=== PATIENT | female | born 1945 | race American Indian/Alaskan Native ===

== ENCOUNTER 2020-12-23 11:19 | Emergency (ER) | payer MEDICARE ==
[2020-12-23 12:41] VITALS: BP 127/76
--- NOTE | 2020-12-23 14:18 | Event Note ---
ED Screening Note Date of service: 12/23/20 Time: 14:16 ED Screening Note: 75-year-old female patient with history of schizophrenia and recurrent urinary tract infections presents to the emergency department with her daughter with reported complaints of increased urinary frequency, wound to the buttocks, and generalized weakness. Daughter is concerned that patient may be dehydrated. States her current symptoms are reminiscent of prior UTIs. Patient is on medication for schizophrenia. She has not exhibited dangerous behavior towards other family members, however she has attempted to leave the house without the family's knowledge. A caregiver has recently begun helping watch patient at her house. No recent falls. Daughter has been attempting to arrange for outpatient psychiatric evaluation, but follow-up has been delayed. Tachycardic in triage. General: Awake, appropriately interactive, no acute distress. Neck: Supple. Full range of motion intact. Cardiovascular: Normal peripheral perfusion. Pulmonary: No respiratory distress. Patient is speaking normally without use of accessory muscles. Skin: No apparent rashes or lesions. Neurological: No facial asymmetry. Follows commands. Musculoskeletal: Moves all four extremities spontaneously with normal range of motion. Psych: Cooperative. Appropriate mood and affect. I have greeted and performed a focused rapid initial assessment of this patient. A comprehensive ED assessment and evaluation of the patient, analysis of all test results, and completion of the medical decision-making process will be conducted by additional ED providers. This initial assessment/diagnostic orders/clinical plan/treatment(s) is/are subject to change based on patients health status, clinical progression and re-assessment. Further treatment and workup at subsequent clinical provider's discretion. Patient/guardian urged not to elope from the ED as their condition may be serious if not clinically assessed and managed.
[2020-12-23 14:49] LABS: Basophils % (Auto) 0.6 % (0.0-1.8); Eosinophils # (Auto) 0.1 K/mm3 (0.0-0.4); Eosinophils % (Auto) 1.6 % (0.0-4.3); Hematocrit 41.4 % (30.3-42.9); Hemoglobin 13.7 gm/dl (10.1-14.3); Mean Corpuscular HGB Conc 33 % (30-34); Mean Corpuscular Volume 85 fl (79-97); Monocytes # (Auto) 0.6 K/mm3 (0.0-0.8); Monocytes % (Auto) 10.8 % (0.0-7.3); Platelet Count 315 K/mm3 (140-440); Red Blood Count 4.87 M/mm3 (3.65-5.03); Red Cell Distribution Width 16.4 % (13.2-15.2)
[2020-12-23 15:13] LABS: Alanine Aminotransferase 7 units/L (7-56); Albumin 3.5 g/dL (3.9-5); BUN/Creatinine Ratio 10; Blood Urea Nitrogen 9 mg/dL (7-17); Calcium 10.6 mg/dL (8.4-10.2); Hemolysis Index 14
--- NOTE | 2020-12-23 15:30 | XRay Report ---
CHEST 2 VIEWS INDICATION: tachycardia/weakness. COMPARISON: None FINDINGS: Support devices: None. Heart: Within normal limits. The aorta is mildly ectatic. Lungs/pleura: No acute air space or interstitial disease. No pleural effusion or pneumothorax. Additional findings: None. IMPRESSION: No acute findings. Signer Name: Soto Agudelo Jr, MD Signed: 12/23/2020 3:23 PM Workstation Name: [id number]
== END 2020-12-23 18:29 | disposition left against medical advice (07) ==
LOC: ED 11:19
DX: F20.9 Schizophrenia, unspecified (principal); Z53.21 Procedure and treatment not carried out due to patient leaving prior to being seen by health care provider
CPT/HCPCS: 36415; 71046; 80053; 83735; 84443; 84484; 85025